=== PATIENT | male | born 1980 | race African-American/Black ===

== ENCOUNTER 2021-01-09 14:36 | Emergency (ER) | payer SELFPAY ==
[~2021-01-09] VITALS: Ht 172.7 cm; Wt 78.0 kg
[2021-01-09 14:38] VITALS: BP 138/87
[2021-01-09] MEDS ORDERED: ACETAMINOPHEN 325MG TABLET PO ONE (18:30)
[2021-01-09] MEDS ORDERED: LIDOCAINE HCL/EPINEPHRINE 1%-EPI 1:100,000 10 ML VIAL IJ ONE (18:30)
[2021-01-09] MEDS ORDERED: LIDOCAINE 1%/EPI 1:200,000 10 ML VIAL IJ NR (19:00)
== END 2021-01-09 19:43 | disposition home or self-care (01) ==
LOC: ER 15:19
DX: S01.01XA Laceration without foreign body of scalp, initial encounter (principal); S09.8XXA Other specified injuries of head, initial encounter; J45.909 Unspecified asthma, uncomplicated; W10.8XXA Fall (on) (from) other stairs and steps, initial encounter; Y93.01 Activity, walking, marching and hiking; Y92.9 Unspecified place or not applicable
CPT/HCPCS: 12002; 70450; 99284; Z7610; J3490

== ENCOUNTER 2021-01-23 12:40 | Emergency (ER) | payer SELFPAY | END 2021-01-23 13:22 | disposition left against medical advice (07) | LOC: ER 12:40 | DX: Z53.21 Procedure and treatment not carried out due to patient leaving prior to being seen by health care provider (principal) ==

== ENCOUNTER 2021-01-23 13:28 | Emergency (ER) | payer SELFPAY ==
[~2021-01-23] VITALS: Ht 188 cm; Wt 75.0 kg
[2021-01-23 13:29] VITALS: BP 172/100
== END 2021-01-23 14:12 | disposition home or self-care (01) ==
LOC: ER 13:28
DX: Z48.02 Encounter for removal of sutures (principal); J45.909 Unspecified asthma, uncomplicated
CPT/HCPCS: 99281; Z7610